=== PATIENT | male | born 1985 | race Two or more races ===

== ENCOUNTER 2018-07-19 02:53 | Emergency (ER) | payer BC, OTHER ==
[~2018-07-19] VITALS: Ht 180.3 cm; Wt 70.8 kg
[2018-07-19 03:10] VITALS: BP 123/84
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
[2018-07-19] MEDS ORDERED: Bacitracin Oint UD TOPIC ONE (03:30)
[2018-07-19] MEDS ORDERED: Tetanus/Diptheria/Pertussis Vaccine 0.5ml Syr IM ONE (03:30)
[2018-07-19] MEDS ORDERED: IBUPROFEN600 MG ORAL (03:40)
[2018-07-19] MEDS ORDERED: BACITRACIN ZIN1 EACH TOPIC (03:40)
--- NOTE | 2018-07-19 03:46 | NUR ---
ED Nurse Note: management services technician on bedside.
[2018-07-19 04:10] VITALS: BP 123/84
--- NOTE | 2018-07-19 04:10 | NUR ---
ER DISCHARGE NOTE: Patient is cleared to be discharged per ERMD, pt is aox4, on room air, with stable vital signs. pt was given dc and prescription instructions, pt was able to verbalize understanding, pt id band removed without complications. pt is able to ambulate with steady gait. pt took all belongings.
--- NOTE | 2018-07-19 10:47 | Diagnostic Imaging Report ---
Indication: Left elbow pain 1 Findings: 3 views of the left elbow were obtained. No acute fractures, malalignment, erosions or periostitis are identified. Soft tissues are unremarkable. Impression: No acute injury
--- NOTE | 2018-07-19 10:48 | Diagnostic Imaging Report ---
Indication: Left leg pain Comparison: None Findings: Two views of the left tibia and fibula were obtained. No acute fracture, malalignment, or periosteal reaction are identified. Soft tissues are unremarkable. Impression: No acute injury.
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
== END 2018-07-19 04:10 | disposition home or self-care (01) ==
LOC: EMR 03:32
DX: S71.102A Unspecified open wound, left thigh, initial encounter (principal); S76.812A Strain of other specified muscles, fascia and tendons at thigh level, left thigh, initial encounter; S50.02XA Contusion of left elbow, initial encounter; V13.4XXA Pedal cycle driver injured in collision with car, pick-up truck or van in traffic accident, initial encounter; Y92.410 Unspecified street and highway as the place of occurrence of the external cause; Z23 Encounter for immunization
CPT/HCPCS: 90471; 90715; 99284

== ENCOUNTER 2018-09-11 11:05 | Emergency (ER) | payer OTHER ==
[~2018-09-11] VITALS: Ht 180.3 cm; Wt 72.6 kg
[~2018-09-11 11:05] MED LIST: BACITRACIN ZIN1 EACH TOPIC; IBUPROFEN600 MG ORAL
[2018-09-11] MEDS ORDERED: NKM (11:11)
[2018-09-11] MEDS ORDERED: Bacitracin Oint UD TOPIC ONE (11:15)
[2018-09-11] MEDS ORDERED: Lidocaine 1% 10mg/ml/Epi 0.005mg/ml 30ml vial INJ ONE (11:15)
[2018-09-11 11:53] VITALS: BP 123/85
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
[2018-09-11] MEDS ORDERED: BACITRACIN15 GM TOPIC (12:31)
[2018-09-11 12:34] VITALS: BP 125/65
== END 2018-09-11 12:34 | disposition home or self-care (01) ==
LOC: EMR 11:30
DX: S01.81XA Laceration without foreign body of other part of head, initial encounter (principal); W01.0XXA Fall on same level from slipping, tripping and stumbling without subsequent striking against object, initial encounter; Y92.9 Unspecified place or not applicable
CPT/HCPCS: 99283

== ENCOUNTER 2018-09-17 10:53 | Emergency (ER) | payer OTHER ==
[~2018-09-17] VITALS: Ht 180.3 cm; Wt 72.6 kg
[~2018-09-17 10:53] MED LIST changes: +BACITRACIN15 GM TOPIC; +NKM
[2018-09-17] MEDS ORDERED: NKM (11:01)
[2018-09-17 11:15] VITALS: BP 122/89
--- NOTE | 2018-09-17 11:15 | Emergency Room Report ---
History of Present Illness General Chief Complaint: Wound Recheck/Suture Removal Source: Patient Present Illness HPI Patient sutured 1 week ago. No problems of fever or pain. Here for suture removal. Allergies: Coded Allergies: No Known Allergies (Unverified , 07/19/18) Patient History Past Medical History: see triage record Social History: Denies: smoking Social History Narrative activities for disabled adults Reviewed Nursing Documentation: PMH: Agreed; PSxH: Agreed Nursing Documentation-PMH Past Medical History: No Stated History Review of Systems Constitutional: Denies: fever Eye: Reports: no symptoms ENT: Reports: see HPI Skin: Reports: see HPI Neurological: Denies: headache Hematologic/Lymphatic: Reports: see HPI Physical Exam Vital Signs Date Time Temp Pulse Resp B/P (MAP) Pulse Ox O2 Delivery O2 Flow Rate FiO2 09/17/18 10:58 98.4 66 16 122/89 97 Room Air Sp02 EP Interpretation: reviewed, normal General Appearance: well appearing, no apparent distress Head: normocephalic Eyes: bilateral eye normal inspection, bilateral eye PERRL ENT: hearing grossly normal, normal voice, moist mucus membranes Neck: full range of motion, supple Respiratory: no respiratory distress, speaking full sentences Cardiovascular #1: regular rate, rhythm Cardiovascular #2: 2+ radial (R) Gastrointestinal: normal inspection Musculoskeletal: gait/station normal Neurologic: alert, oriented x3, normal gait, grossly normal Psychiatric: mood/affect normal Skin: no rash, wd healing/no infection noted Medical Decision Making Diagnostic Impression: Primary Impression: Encounter for removal of sutures ER Course Well healed laceration. Sutures removed. Tolerated well. Discussed further care. Patient stable for outpatient observation and treatment. Last Vital Signs Date Time Temp Pulse Resp B/P (MAP) Pulse Ox O2 Delivery O2 Flow Rate FiO2 09/17/18 11:18 98.4 73 16 122/89 97 Room Air Status: improved Disposition: HOME, SELF-CARE Condition: Improved Pal Menard MD Sep 17, 2018 11:15
--- NOTE | 2018-09-17 11:16 | NUR ---
ED Nurse Note:pt. had sutures removed above right eye by ER MD, pt. received d/c instructions and left ER with steady gait
[2018-09-17 11:18] VITALS: BP 122/89
== END 2018-09-17 11:30 | disposition home or self-care (01) ==
LOC: EMR 11:30
DX: Z48.02 Encounter for removal of sutures (principal)
CPT/HCPCS: 99281